=== PATIENT | female | born 1985 | race Caucasian/White ===

== ENCOUNTER 2024-02-15 18:49 | Emergency (ER) | payer MEDICAID ==
[~2024-02-15] VITALS: Ht 157.5 cm; Wt 59.1 kg
[~2024-02-15 18:49] MED LIST: HYDR453.3 TOP; METR70GE27 VG; SULF-14 PO
[2024-02-15] MEDS: CefTRIAXone 1000mg IM Kit (w/lidocaine diluent) IM ONE (20:19)
[2024-02-15] MEDS ORDERED: ONDA-243 PO (20:31)
[2024-02-15 20:40] VITALS: BP 111/72; PULSE 76; RESP 15; TEMP 98.7; O2SAT 98
== END 2024-02-15 20:43 | disposition home or self-care (01) ==
LOC: ER 18:49
DX: L08.89 Other specified local infections of the skin and subcutaneous tissue (principal); M79.89 Other specified soft tissue disorders; M79.632 Pain in left forearm; Z88.8 Allergy status to other drugs, medicaments and biological substances; Z79.899 Other long term (current) drug therapy; Z79.2 Long term (current) use of antibiotics
CPT/HCPCS: 96372; 99283; J0696

== ENCOUNTER 2024-06-16 12:45 | Emergency (ER) | payer MEDICAID ==
[~2024-06-16] VITALS: Ht 157.5 cm; Wt 58.4 kg
[~2024-06-16 12:45] MED LIST changes: +ONDA-243 PO
[2024-06-16 13:52] LABS: URINE HCG NEGATIVE (NEG)
[2024-06-16 14:12] LABS: UA COLLECTION TYPE CLN CATCH MIDSTREAM
[2024-06-16 14:14] LABS: CLARITY,URINE TURBID (Clear); COLOR,URINE STRAW (Yellow); GLUCOSE, URINE NEGATIVE (Neg); PROTEIN,URINE 100 mg/dl (Neg)
[2024-06-16 14:15] LABS: BILIRUBIN,URINE NEGATIVE (Neg); KETONES,URINE NEGATIVE (Neg); LEUKOCYTE ESTERASE ,URINE LARGE (Neg); NITRITES, URINE POSITIVE (Neg); OCCULT BLOOD,URINE MODERATE (Neg); UROBILINOGEN,URINE 0.2 E.U/dL (0.2-1.0)
[2024-06-16 14:17] LABS: WBC,URINE TNTC /HPF (0-4)
[2024-06-16 14:18] LABS: BACTERIA,URINE 2+ /HPF (Neg); RENAL CELLS, URINE FEW /HPF; SQUAMOUS EPITHELIAL CELL,UR FEW /LPF (FEW)
[2024-06-16] MEDS: CefTRIAXone 1000mg IM Kit (w/lidocaine diluent) IM STA (15:20)
[2024-06-16] MEDS ORDERED: CIPR-259 PO (15:43)
[2024-06-16 16:07] VITALS: BP 134/91; PULSE 74; RESP 15; TEMP 97.9; O2SAT 98
[2024-06-16] MEDS ORDERED: ipratropium/albuterol 3ml nebule NEB STA (16:17)
[2024-06-19] MEDS ORDERED: AMOX-580 PO (08:49)
== END 2024-06-16 16:08 | disposition home or self-care (01) ==
LOC: ER 12:46
DX: N39.0 Urinary tract infection, site not specified (principal); Z88.5 Allergy status to narcotic agent; Z79.899 Other long term (current) drug therapy
CPT/HCPCS: 81001; 81025; 87077; 87088; 87186; 96372; 99283; J0696

== ENCOUNTER 2024-08-27 21:15 | Inpatient (IN) | payer MEDICAID ==
[~2024-08-27] VITALS: Ht 154.9 cm; Wt 58.7 kg
[2024-08-27 22:14] LABS: URINE HCG NEGATIVE (NEG)
[2024-08-27 22:15] LABS: CLARITY,URINE CLOUDY (Clear); COLOR,URINE YELLOW (Yellow); UA COLLECTION TYPE CLN CATCH MIDSTREAM
[2024-08-27 22:16] LABS: BACTERIA,URINE 4+ /HPF (Neg); RBC,URINE 50-100 /HPF (0-2); SQUAMOUS EPITHELIAL CELL,UR NONE SEEN /LPF (FEW); WBC,URINE TNTC /HPF (0-4)
[2024-08-28 04:20] LABS: BASOPHILS % (AUTO) 0.9 % (0-1); EOSINOPHILS # (AUTO) 0.1 X10'3 (0-0.9); EOSINOPHILS % (AUTO) 2.8 % (0-6); HEMATOCRIT 29.8 % (35.0-45.0); LYMPHOCYTES # (AUTO) 1.6 X10'3 (1.1-4.8); LYMPHOCYTES % (AUTO) 33.2 % (21-51); MEAN CORPUSCULAR HEMOGLOBIN 30.6 PG (27.0-31.0); MEAN CORPUSCULAR HGB CONC 33.4 g/dL (33.0-36.5); MEAN CORPUSCULAR VOLUME 91.6 FL (78-98); MEAN PLATELET VOLUME 6.8 FL (7.4-10.4); MONOCYTES # (AUTO) 0.6 X10'3 (0-0.9); MONOCYTES % (AUTO) 13.3 % (2-12); NEUTROPHILS # (AUTO) 2.4 X10'3 (1.8-7.7); NEUTROPHILS % (AUTO) 49.8 % (42-75); PLATELET COUNT 283 X10'3 (140-440); RED BLOOD COUNT 3.26 X10'6 (4.20-5.60); RED CELL DISTRIBUTION WIDTH 15.2 % (11.5-14.5); WHITE BLOOD COUNT 4.9 X10'3 (4.5-11.0)
[2024-08-28 04:28] LABS: ALANINE AMINOTRANSFERASE 20 U/L (12-78); ALBUMIN 3.1 G/DL (3.4-5.0); ALBUMIN/GLOBULIN RATIO 0.8 (1.1-1.5); ALKALINE PHOSPHATASE 84 IU/L (46-116); ANION GAP 13 (8-16); ASPARTATE AMINO TRANSFERASE 19 U/L (10-37); BILIRUBIN,TOTAL 0.2 MG/DL (0.1-1.0); BLOOD UREA NITROGEN 80 MG/DL (7-18); BUN/CREATININE RATIO 11.9 (10.0-20.0); CALCIUM 7.9 MG/DL (8.5-10.1); CHLORIDE 112 MMOL/L (99-107); CREATININE 6.71 MG/DL (0.40-0.90); GLUCOSE 79 MG/DL (70-104); POTASSIUM 4.7 MMOL/L (3.5-5.1); SODIUM 138 MMOL/L (135-145); TOTAL PROTEIN 6.9 G/DL (6.4-8.2); eCRCL 9 ML/MIN; eGFR 7 ML/MIN
[2024-08-28 04:31] LABS: TOTAL CARBON DIOXIDE 13.4 MMOL/L (24-32)
[2024-08-28] MEDS: piperacillin/tazo 3.375gm/50ml 50 ML IV SCH (06:30)
[2024-08-28] MEDS ORDERED: mag hydrox/Alum hydrox/simeth 30ml oral suspension PO PRN (09:30)
[2024-08-28] MEDS ORDERED: magnesium sulf-water 4G/100mL 100 ML IV PRN (09:30)
[2024-08-28] MEDS ORDERED: ondansetron/PF 4mg/2ml inj IV PRN (09:30)
[2024-08-28] MEDS ORDERED: magnesium sulf-water 2g/50mL 50 ML IV PRN (09:30)
[2024-08-28] MEDS ORDERED: potassium Cl 20 mEq SR tablet PO PRN ×2 (09:30)
[2024-08-28] MEDS ORDERED: acetaminophen 325mg tablet PO PRN (09:30)
[2024-08-28] MEDS ORDERED: potassium Cl 40MEQ/1/2NS 520ml 520 ML IV PRN (09:30)
[2024-08-28] MEDS ORDERED: magnesium hydroxide 30ml (MOM) UD suspension PO PRN (09:30)
[2024-08-28] MEDS: acetaminophen 325mg tablet PO ONE (11:05)
[2024-08-28] MEDS: normal saline 1000ml 1,000 ML IV ONE (11:35)
[2024-08-28] MEDS: normal saline 1000ML IV soln IVB ONE (11:36)
[2024-08-28 12:17] LABS: URINE AMPHETAMINE SCREEN NEGATIVE (Neg); URINE BARBITUATE SCREEN NEGATIVE (Neg); URINE BENZODIAZEPINES SCREEN POSITIVE (Neg); URINE CANNABINOID SCREEN POSITIVE (Neg); URINE COCAINE SCREEN NEGATIVE (Neg); URINE METHADONE SCREEN POSITIVE (Neg); URINE OPIATE SCREEN NEGATIVE (Neg); URINE PHENCYCLIDINE SCREEN NEGATIVE (Neg)
[2024-08-28] MEDS: sodium bicarbonate (8.4%) inj. 100 MEQ in dextrose 5%-water 1,000 ML IV SCH (14:23)
[2024-08-28] MEDS: acetaminophen 325mg tablet PO PRN (14:26)
[2024-08-28] MEDS: methadone 10mg tablet PO ONE (14:59)
[2024-08-28] MEDS: piperacillin/tazo 4.5gm/100ml 100 ML IV SCH (17:48)
[2024-08-28] MEDS: calcium acetate 667mg (PhosLO) capsule PO SCH (19:23)
[2024-08-28] MEDS: K and/or MAG REPLACEMENT MC SCH (20:00)
[2024-08-28] MEDS: heparin, porcine 5000 units/ml vial SQ SCH (20:00)
[2024-08-28] MEDS: docusate sod 100mg capsule PO SCH (20:55)
[2024-08-28 20:57] VITALS: BP 100/61; PULSE 61; RESP 15; TEMP 98; O2SAT 100
== END 2024-08-28 22:40 | disposition left against medical advice (07) | DRG 463 ==
LOC: ER 21:16 → ED HOLD 08-28 09:34
PROVIDERS: ADMIT Family Medicine; ATTEND Family Medicine
DX: N12 Tubulo-interstitial nephritis, not specified as acute or chronic (principal); N17.9 Acute kidney failure, unspecified; E83.39 Other disorders of phosphorus metabolism; Z87.891 Personal history of nicotine dependence; E87.20 Acidosis, unspecified; Z53.21 Procedure and treatment not carried out due to patient leaving prior to being seen by health care provider; D64.9 Anemia, unspecified; F41.9 Anxiety disorder, unspecified; N18.5 Chronic kidney disease, stage 5; Z88.5 Allergy status to narcotic agent; Z79.899 Other long term (current) drug therapy
CPT/HCPCS: 36415; 80053; 80305; 81001; 81025; 84100; 85025; 87077; 87088; 87186; 99285; G0378; J2543; J3490; J7030; J7070